=== PATIENT | male | born 1960 | race Caucasian/White ===

== ENCOUNTER → 2019-05-28 | Day surgery (SDC) | payer MEDICAID ==
[~2019-05-28] VITALS: Ht 182.9 cm; Wt 104.3 kg
[~2019-05-28] MED LIST: NIFE30TA76 PO
== END | disposition home or self-care (01) ==
LOC: SUR 10:08 → EDUNIT# 12:30
PROVIDERS: ATTEND Orthopaedic Surgery
DX: Z01.818 Encounter for other preprocedural examination (principal); M17.11 Unilateral primary osteoarthritis, right knee; M17.31 Unilateral post-traumatic osteoarthritis, right knee; S83.262D Peripheral tear of lateral meniscus, current injury, left knee, subsequent encounter; X58.XXXD Exposure to other specified factors, subsequent encounter
CPT/HCPCS: 73560

== ENCOUNTER → 2019-09-18 | Outpatient (CLI) | payer MEDICAID ==
[~2019-09-18] MED LIST changes: +NIFE1TAB31 PO; -NIFE30TA76 PO
== END | disposition home or self-care (01) ==
LOC: Rad HDHVI 11:09
PROVIDERS: ATTEND Internal Medicine
DX: I08.8 Other rheumatic multiple valve diseases (principal); I11.9 Hypertensive heart disease without heart failure
CPT/HCPCS: 93306

== ENCOUNTER → 2019-09-24 | Outpatient (CLI) | payer MEDICAID ==
[~2019-09-24] VITALS: Ht 182.9 cm; Wt 104.3 kg
[~2019-09-24] MED LIST changes: +ADENOSINE 88 MG in GIVE UN-DILUTED 0 ML IV ONE; +ADENOSINE 90 MG/30 ML INJ IV ONE
== END | disposition home or self-care (01) ==
LOC: Rad HDHVI 13:21
PROVIDERS: ATTEND Internal Medicine
DX: I10 Essential (primary) hypertension (principal); E11.9 Type 2 diabetes mellitus without complications; M25.561 Pain in right knee
CPT/HCPCS: 78452; 93005; 96374; 96375; A9500; J0153

== ENCOUNTER 2020-05-13 09:35 | Emergency (ER) | payer MEDICAID ==
[~2020-05-13] VITALS: Ht 182.9 cm; Wt 99.8 kg
[~2020-05-13 09:35] MED LIST changes: -ADENOSINE 88 MG in GIVE UN-DILUTED 0 ML IV ONE; -ADENOSINE 90 MG/30 ML INJ IV ONE
[2020-05-13 10:00] VITALS: BP 109/77
[2020-05-13] MEDS ORDERED: LIDOCAINE 1% HCL (LOCAL ANESTH.) INJ 20ML MDV IJ ONE (11:15)
== END 2020-05-13 12:04 | disposition home or self-care (01) ==
LOC: EDBD 09:35 → ER 09:35
DX: S01.112A Laceration without foreign body of left eyelid and periocular area, initial encounter (principal); E11.9 Type 2 diabetes mellitus without complications; I10 Essential (primary) hypertension; F17.210 Nicotine dependence, cigarettes, uncomplicated; F10.20 Alcohol dependence, uncomplicated; Z79.899 Other long term (current) drug therapy; Y90.9 Presence of alcohol in blood, level not specified; Y08.89XA Assault by other specified means, initial encounter; Y93.01 Activity, walking, marching and hiking; Y92.488 Other paved roadways as the place of occurrence of the external cause; Y99.8 Other external cause status
CPT/HCPCS: 12013; 70450; 70486; 99285; J2001

== ENCOUNTER 2020-05-13 14:58 | Emergency (ER) | payer MEDICAID ==
[~2020-05-13] VITALS: Ht 185.4 cm; Wt 77.1 kg
[2020-05-13] MEDS ORDERED: SODIUM CHLORIDE 0.9% 1,000 ML IV ONE (15:45)
[2020-05-13 16:18] VITALS: BP 101/55
[2020-05-13 16:55] LABS: Basophils # (auto) 0 10 ^3/uL (0-0.2); Eosinophils # (auto) 0 10 ^3/uL (0-0.8); Hemoglobin 12.3 g/dL (13.5-17.5); Lymphocytes % (auto) 6.7 % (10.0-50.0); Neutrophils # (auto) 11.8 10 ^3/uL (1.6-8.6); Red Cell Distribution Width 15.4 % (11.8-14.3); White Blood Cell 14.5 10^3/uL (4.4-10.8)
[2020-05-13 16:57] LABS: Basophils % (auto) 0.3 % (0.0-2.0); Hematocrit 35.8 % (41.0-53.0); Mean Corpuscular Hemoglobin 34.8 pg (28.0-32.0); Mean Corpuscular Hgb Conc. 34.4 g/dL (32.0-36.0); Mean Corpuscular Volume 101.2 fL (80.0-100.0); Monocytes # (auto) 1.7 10 ^3/uL (0-1.3); Monocytes % (auto) 11.6 % (0.0-12.0); Neutrophils % (auto) 81.4 % (37.0-80.0); Platelet Count (auto) 126 10^3/uL (140-450); Red Blood Cells 3.54 10^6/uL (4.5-5.90)
[2020-05-13 17:15] LABS: Albumin 2.8 g/dL (3.4-5.0); Anion Gap 16 (5-15); Blood Alcohol < 3.0 mg/dL (0-5); Blood Urea Nitrogen 39 mg/dL (7-18); Calcium 9.8 mg/dL (8.5-10.1); Carbon Dioxide 22 mmol/L (21-32); Chloride 97 mmol/L (98-107); Glucose 153 mg/dL (74-106); Potassium 3.6 mmol/L (3.5-5.1); Sodium 135 mmol/L (136-145)
[2020-05-13 17:18] LABS: Alanine Aminotransferase 122 U/L (16-61); Alkaline Phosphatase 168 U/L (45-117); Aspartate Aminotransferase 437 U/L (15-37); BUN/Creatinine Ratio 18.5; Bilirubin, Total 13.2 mg/dL (0.2-1.0); GFR African American 42 mL/min; GFR Non-African American 35 mL/min; Total Protein 5.6 g/dL (6.4-8.2)
== END 2020-05-13 19:43 | disposition left against medical advice (07) ==
LOC: EDUNIT# 14:58 → EDBD 14:58 → ER 14:58
DX: R53.1 Weakness (principal); E11.9 Type 2 diabetes mellitus without complications; I10 Essential (primary) hypertension; F17.210 Nicotine dependence, cigarettes, uncomplicated
CPT/HCPCS: 36415; 80053; 80320; 85025; 93005; 96360; 96361; 99284; J7030

== ENCOUNTER 2020-10-05 02:58 | Emergency (ER) | payer MEDICAID ==
[~2020-10-05] VITALS: Ht 180.3 cm; Wt 81.6 kg
[2020-10-05 07:33] VITALS: BP 120/63
== END 2020-10-05 08:23 | disposition home or self-care (01) ==
LOC: ER 03:01
DX: S91.332A Puncture wound without foreign body, left foot, initial encounter (principal); X58.XXXA Exposure to other specified factors, initial encounter; Y93.89 Activity, other specified; Y92.89 Other specified places as the place of occurrence of the external cause; Y99.8 Other external cause status
CPT/HCPCS: 73630

== ENCOUNTER 2020-11-23 12:04 | Inpatient (IN) | payer MEDICAID ==
[~2020-11-23] VITALS: Ht 180.3 cm; Wt 82.8 kg
[2020-11-23 13:29] LABS: Urine Bacteria NONE SEEN /hpf (None Seen); Urine Blood 1+ /uL (Negative); Urine Mucus FEW (None Seen); Urine Specific Gravity 1.037 (1.001-1.035); Urine WBC 3 /hpf (0 - 3)
[2020-11-23 14:26] LABS: Basophils # (auto) 0 10 ^3/uL (0-0.2); Basophils % (auto) 0.2 % (0.0-2.0); Eosinophils # (auto) 0 10 ^3/uL (0-0.8); Eosinophils % (auto) 0.2 % (0.0-7.0); Hematocrit 36.6 % (41.0-53.0); Hemoglobin 12.7 g/dL (13.5-17.5); Lymphocytes # (auto) 0.8 10 ^3/uL (0.4-5.4); Lymphocytes % (auto) 7.9 % (10.0-50.0); Mean Corpuscular Hemoglobin 35.7 pg (28.0-32.0); Mean Corpuscular Hgb Conc. 34.8 g/dL (32.0-36.0); Mean Corpuscular Volume 102.5 fL (80.0-100.0); Monocytes # (auto) 0.5 10 ^3/uL (0-1.3); Monocytes % (auto) 4.8 % (0.0-12.0); Neutrophils # (auto) 8.8 10 ^3/uL (1.6-8.6); Neutrophils % (auto) 86.9 % (37.0-80.0); Nucleated Red Blood Cells % 0.1 %; Platelet Count (auto) 146 10^3/uL (140-450); Red Blood Cells 3.57 10^6/uL (4.5-5.90); Red Cell Distribution Width 14.8 % (11.8-14.3); White Blood Cell 10.2 10^3/uL (4.4-10.8)
[2020-11-23 14:27] LABS: Albumin 2.6 g/dL (3.4-5.0); BUN/Creatinine Ratio 11.9; Calcium 8.6 mg/dL (8.5-10.1); Potassium 4.3 mmol/L (3.5-5.1)
[2020-11-23] MEDS ORDERED: ONDANSETRON HCL 4 MG/2 ML VIAL IV ONE (14:30)
[2020-11-23 14:35] LABS: Total Protein 6.5 g/dL (6.4-8.2)
[2020-11-23] MEDS ORDERED: MORPHINE SULF INJ 2 MG/ML SYRINGE 1ML IV PRN ×2 (15:00)
[2020-11-23] MEDS ORDERED: NITROGLYCERIN 0.4 MG SL TAB SL PRN (15:00)
[2020-11-23] MEDS ORDERED: ACETAMINOPHEN 325 MG TAB PO PRN (15:00)
[2020-11-23] MEDS: ONDANSETRON HCL 4 MG/2 ML VIAL IV PRN (18:38)
[2020-11-23] MEDS: HYDROcodone-ACET 5/325MG TAB PO PRN (18:41)
[2020-11-23 22:00] VITALS: BP 142/79
[2020-11-24 05:00] VITALS: BP 119/68
[2020-11-24 07:32] LABS: INR 1.77 (0.9-1.15)
[2020-11-24 08:37] VITALS: BP 136/71
[2020-11-24] MEDS: ONDANSETRON HCL 4 MG/2 ML VIAL IV PRN (09:20)
[2020-11-24] MEDS: HYDROcodone-ACET 5/325MG TAB PO PRN (09:20)
[2020-11-24] MEDS: levoFLOXacin 500MG 100 ML IV SCH (09:20)
[2020-11-24] MEDS ORDERED: DEXTROSE (50%) 50ML SYRG IV PRN (09:30)
[2020-11-24] MEDS ORDERED: PROMETHAZINE HCL 25 MG/ML 1ML IV PRN (11:00)
[2020-11-24] MEDS: SUCRALFATE 1 GM/10 ML ORAL SUSP PO SCH ×4 (11:30→22:11)
[2020-11-24] MEDS: PANTOPRAZOLE 40 MG TAB PO SCH ×2 (11:48→22:11)
[2020-11-24 11:52] LABS: Albumin 2.2 g/dL (3.4-5.0); Calcium 8.4 mg/dL (8.5-10.1); Potassium 4.3 mmol/L (3.5-5.1)
[2020-11-24 11:55] LABS: BUN/Creatinine Ratio 23.8; Total Protein 5.6 g/dL (6.4-8.2)
[2020-11-24] MEDS: ACCU-CHEK COMFORT CURVE STRIP VI SCH ×3 (12:04→22:11)
[2020-11-24] MEDS: InsuLIN REG 1unit/0.01ml Soln (100units/ml) SC SCH ×3 (12:33→22:16)
[2020-11-24 12:36] VITALS: BP 142/69
[2020-11-24 17:00] VITALS: BP 143/70
[2020-11-24 22:00] VITALS: BP 140/65
[2020-11-25 05:00] VITALS: BP 114/60
[2020-11-25] MEDS: ACCU-CHEK COMFORT CURVE STRIP VI SCH ×4 (06:23→22:21)
[2020-11-25] MEDS: HYDROcodone-ACET 5/325MG TAB PO PRN (06:23)
[2020-11-25] MEDS: InsuLIN REG 1unit/0.01ml Soln (100units/ml) SC SCH ×4 (06:23→22:24)
[2020-11-25 06:39] LABS: Eosinophils # (auto) 0.5 10 ^3/uL (0-0.8); Hemoglobin 9.5 g/dL (13.5-17.5); Monocytes # (auto) 1.1 10 ^3/uL (0-1.3)
[2020-11-25 06:42] LABS: Basophils # (auto) 0 10 ^3/uL (0-0.2); Basophils % (auto) 0.6 % (0.0-2.0); Eosinophils % (auto) 5.4 % (0.0-7.0); Hematocrit 25.8 % (41.0-53.0); Lymphocytes % (auto) 23.9 % (10.0-50.0); Mean Corpuscular Hemoglobin 37.3 pg (28.0-32.0); Mean Corpuscular Hgb Conc. 36.7 g/dL (32.0-36.0); Mean Corpuscular Volume 101.5 fL (80.0-100.0); Monocytes % (auto) 12.7 % (0.0-12.0); Neutrophils # (auto) 4.9 10 ^3/uL (1.6-8.6); Neutrophils % (auto) 57.4 % (37.0-80.0); Nucleated Red Blood Cells % 0.2 %; Platelet Count (auto) 100 10^3/uL (140-450); Red Blood Cells 2.54 10^6/uL (4.5-5.90); White Blood Cell 8.5 10^3/uL (4.4-10.8)
[2020-11-25 06:58] LABS: Calcium 7.8 mg/dL (8.5-10.1); Magnesium 1.9 mg/dL (1.6-2.6); Potassium 3.9 mmol/L (3.5-5.1)
[2020-11-25] MEDS: SUCRALFATE 1 GM/10 ML ORAL SUSP PO SCH ×4 (07:01→21:43)
[2020-11-25 07:03] LABS: BUN/Creatinine Ratio 26.1; Bilirubin, Total 5.3 mg/dL (0.2-1.0); Total Protein 4.9 g/dL (6.4-8.2)
[2020-11-25 08:43] VITALS: BP 130/69
[2020-11-25] MEDS: levoFLOXacin 500MG 100 ML IV SCH (10:37)
[2020-11-25] MEDS: PANTOPRAZOLE 40 MG TAB PO SCH ×2 (10:38→21:42)
[2020-11-25 13:00] VITALS: BP 140/68
[2020-11-25 17:00] VITALS: BP 127/65
[2020-11-25 21:24] VITALS: BP 109/54
[2020-11-26] MEDS: HYDROcodone-ACET 5/325MG TAB PO PRN (02:33)
[2020-11-26 04:39] VITALS: BP 127/61
[2020-11-26] MEDS: ACCU-CHEK COMFORT CURVE STRIP VI SCH ×3 (06:57→16:22)
[2020-11-26] MEDS: SUCRALFATE 1 GM/10 ML ORAL SUSP PO SCH ×3 (06:57→16:22)
[2020-11-26] MEDS: InsuLIN REG 1unit/0.01ml Soln (100units/ml) SC SCH ×3 (07:02→16:30)
[2020-11-26 09:00] VITALS: BP 101/55
[2020-11-26] MEDS: PANTOPRAZOLE 40 MG TAB PO SCH (09:49)
[2020-11-26] MEDS: levoFLOXacin 500MG 100 ML IV SCH (09:49)
[2020-11-26 12:44] VITALS: BP 122/55
[2020-11-26 16:41] VITALS: BP 113/69
[2020-11-26 18:37] VITALS: BP 122/55
== END 2020-11-26 19:45 | disposition home or self-care (01) | DRG 139 ==
LOC: ER 12:04 → TELE 14:59 → TELE-EAST 18:31
PROVIDERS: ADMIT Internal Medicine; ATTEND Internal Medicine
DX: J18.9 Pneumonia, unspecified organism (principal); D68.9 Coagulation defect, unspecified; J90 Pleural effusion, not elsewhere classified; K31.84 Gastroparesis; E11.65 Type 2 diabetes mellitus with hyperglycemia; K70.30 Alcoholic cirrhosis of liver without ascites; J98.11 Atelectasis; F10.10 Alcohol abuse, uncomplicated; Z20.822 Contact with and (suspected) exposure to COVID-19; I10 Essential (primary) hypertension
CPT/HCPCS: 36415; 71046; 71250; 80053; 80320; 81001; 82140; 82962; 83036; 83735; 83880; 84484; 85025; 85610; 87081; 87426; 96374; 96375; G0378; J1815; J1956; J2405

== ENCOUNTER 2020-12-28 14:41 | Inpatient (IN) | payer MEDICAID ==
[~2020-12-28] VITALS: Ht 180.3 cm; Wt 92.9 kg
[2020-12-28] MEDS ORDERED: SODIUM CHLORIDE 0.9% 1,000 ML IV ONE (15:00)
[2020-12-28] MEDS ORDERED: PIPERACILLIN-TAZOB 3.375GM 100 ML IV ONE (15:00)
[2020-12-28 17:00] LABS: Hemoglobin 11.6 g/dL (13.5-17.5); Lymphocytes # (auto) 0.8 10 ^3/uL (0.4-5.4); Monocytes # (auto) 0.7 10 ^3/uL (0-1.3); Monocytes % (auto) 8.6 % (0.0-12.0); Nucleated Red Blood Cells % 0.1 %
[2020-12-28 17:02] LABS: Basophils # (auto) 0 10 ^3/uL (0-0.2); Basophils % (auto) 0.6 % (0.0-2.0); Eosinophils # (auto) 0.1 10 ^3/uL (0-0.8); Eosinophils % (auto) 1.5 % (0.0-7.0); Hematocrit 32.4 % (41.0-53.0); Lymphocytes % (auto) 9.7 % (10.0-50.0); Mean Corpuscular Hemoglobin 37.4 pg (28.0-32.0); Mean Corpuscular Hgb Conc. 35.8 g/dL (32.0-36.0); Mean Corpuscular Volume 104.5 fL (80.0-100.0); Neutrophils # (auto) 6.8 10 ^3/uL (1.6-8.6); Neutrophils % (auto) 79.6 % (37.0-80.0); Platelet Count (auto) 101 10^3/uL (140-450); Red Cell Distribution Width 16.3 % (11.8-14.3); White Blood Cell 8.5 10^3/uL (4.4-10.8)
[2020-12-28 17:20] LABS: Albumin 1.9 g/dL (3.4-5.0); BUN/Creatinine Ratio 9.2; Calcium 7.7 mg/dL (8.5-10.1); Potassium 3.5 mmol/L (3.5-5.1)
[2020-12-28 17:22] LABS: Lactic Acid w/Reflex 4.7 mmol/L (0.4-2.0)
[2020-12-28 17:25] LABS: INR 1.94 (0.9-1.15); Partial Thromboplastin Time 43.1 sec (23.0-31.2); Total Protein 6.1 g/dL (6.4-8.2)
[2020-12-28 18:24] LABS: Urine Bacteria NONE SEEN /hpf (None Seen); Urine Blood Negative /uL (Negative); Urine Specific Gravity 1.039 (1.001-1.035); Urine WBC 1 /hpf (0 - 3)
[2020-12-28] MEDS ORDERED: NITROGLYCERIN 0.4 MG SL TAB SL PRN (19:30)
[2020-12-28] MEDS ORDERED: hydrALAZINE HCL 20 MG/ML VL IV PRN (19:30)
[2020-12-28] MEDS ORDERED: ONDANSETRON HCL 4 MG/2 ML VIAL IV PRN (19:30)
[2020-12-28] MEDS: SODIUM CHLORIDE 0.9% 1,000 ML IV SCH (19:30)
[2020-12-28] MEDS ORDERED: MORPHINE SULF INJ 2 MG/ML SYRINGE 1ML IV PRN (19:30)
[2020-12-28] MEDS ORDERED: ACETAMINOPHEN 325 MG TAB PO PRN (19:30)
[2020-12-28] MEDS ORDERED: VANCOMYCIN PER PHARMACY 0 MG IV SCH (19:30)
[2020-12-28] MEDS: VANCOMYCIN 1GM/250ML 250 ML IV SCH (20:00)
[2020-12-28 23:40] VITALS: BP 131/70
[2020-12-29 05:00] VITALS: BP 123/61
[2020-12-29] MEDS: VANCOMYCIN 1GM/250ML 250 ML IV SCH ×2 (05:03→16:49)
[2020-12-29] MEDS: SODIUM CHLORIDE 0.9% 1,000 ML IV SCH (05:03)
[2020-12-29] MEDS: PIPERACILLIN-TAZOB 3.375GM 100 ML IV SCH ×4 (06:06→18:50)
[2020-12-29 06:12] LABS: Basophils # (auto) 0.1 10 ^3/uL (0-0.2); Monocytes # (auto) 0.7 10 ^3/uL (0-1.3)
[2020-12-29 06:15] LABS: Basophils % (auto) 0.7 % (0.0-2.0); Eosinophils # (auto) 0.2 10 ^3/uL (0-0.8); Eosinophils % (auto) 3.4 % (0.0-7.0); Hematocrit 31.1 % (41.0-53.0); Hemoglobin 11.1 g/dL (13.5-17.5); Lymphocytes % (auto) 14.2 % (10.0-50.0); Mean Corpuscular Hemoglobin 37.2 pg (28.0-32.0); Mean Corpuscular Hgb Conc. 35.8 g/dL (32.0-36.0); Monocytes % (auto) 9.7 % (0.0-12.0); Neutrophils # (auto) 5.2 10 ^3/uL (1.6-8.6); Nucleated Red Blood Cells % 0.1 %; Platelet Count (auto) 88 10^3/uL (140-450); Red Blood Cells 2.99 10^6/uL (4.5-5.90); Red Cell Distribution Width 16.9 % (11.8-14.3); White Blood Cell 7.3 10^3/uL (4.4-10.8)
[2020-12-29 06:29] LABS: Lactic Acid w/Reflex 2.7 mmol/L (0.4-2.0)
[2020-12-29 06:35] LABS: Potassium 3.4 mmol/L (3.5-5.1)
[2020-12-29 06:48] LABS: BUN/Creatinine Ratio 15.4; Calcium 7.4 mg/dL (8.5-10.1)
[2020-12-29 08:59] VITALS: BP 124/76
[2020-12-29] MEDS: HYDROcodone-ACET 5/325MG TAB PO PRN ×3 (09:53→16:51)
[2020-12-29] MEDS: ENOXAPARIN SOD 40 MG/0.4 ML SYRINGE SC SCH (09:55)
[2020-12-29 13:00] VITALS: BP 128/62
[2020-12-29] MEDS ORDERED: DEXTROSE (50%) 50ML SYRG IV PRN (13:30)
[2020-12-29] MEDS ORDERED: POTASSIUM CHL 20MEQ/100ML 100 ML IV ONE (13:30)
[2020-12-29] MEDS: ACCU-CHEK COMFORT CURVE STRIP VI SCH ×2 (16:49→20:57)
[2020-12-29 17:00] VITALS: BP 126/78
[2020-12-29] MEDS: InsuLIN REG 1unit/0.01ml Soln (100units/ml) SC SCH ×2 (17:04→20:53)
[2020-12-29 22:00] VITALS: BP 121/66
[2020-12-30] MEDS: ACCU-CHEK COMFORT CURVE STRIP VI SCH ×6 (00:27→20:00)
[2020-12-30] MEDS: PIPERACILLIN-TAZOB 3.375GM 100 ML IV SCH ×4 (00:27→18:20)
[2020-12-30] MEDS: HYDROcodone-ACET 5/325MG TAB PO PRN ×3 (00:28→22:24)
[2020-12-30] MEDS: VANCOMYCIN 1GM/250ML 250 ML IV SCH ×4 (02:18→21:06)
[2020-12-30] MEDS: InsuLIN REG 1unit/0.01ml Soln (100units/ml) SC SCH ×6 (04:00→20:18)
[2020-12-30 05:00] VITALS: BP 116/60
[2020-12-30 06:23] LABS: Hemoglobin 12.3 g/dL (13.5-17.5); Mean Corpuscular Hemoglobin 37.3 pg (28.0-32.0); Mean Corpuscular Volume 103.5 fL (80.0-100.0)
[2020-12-30 06:30] LABS: Basophils # (auto) 0 10 ^3/uL (0-0.2); Eosinophils # (auto) 0.2 10 ^3/uL (0-0.8); Eosinophils % (auto) 3.4 % (0.0-7.0); Lymphocytes # (auto) 0.8 10 ^3/uL (0.4-5.4); Lymphocytes % (auto) 10.9 % (10.0-50.0); Monocytes # (auto) 0.8 10 ^3/uL (0-1.3); Monocytes % (auto) 11.9 % (0.0-12.0); Neutrophils # (auto) 5.2 10 ^3/uL (1.6-8.6); Neutrophils % (auto) 73.8 % (37.0-80.0); Nucleated Red Blood Cells % 0.4 %; Platelet Count (auto) 104 10^3/uL (140-450); Red Blood Cells 3.29 10^6/uL (4.5-5.90); Red Cell Distribution Width 16.8 % (11.8-14.3); White Blood Cell 7.1 10^3/uL (4.4-10.8)
[2020-12-30 06:45] LABS: Potassium 3.4 mmol/L (3.5-5.1)
[2020-12-30 06:53] LABS: BUN/Creatinine Ratio 14.9; Calcium 7.9 mg/dL (8.5-10.1)
[2020-12-30] MEDS ORDERED: GADOTERATE MEG 10 MMOL/20ml INJ (0.5MMOL/ml) IV ONE (08:59)
[2020-12-30] MEDS: ENOXAPARIN SOD 40 MG/0.4 ML SYRINGE SC SCH (10:00)
[2020-12-30] MEDS ORDERED: INSULIN LANTUS (GLARGINE) 1 /0.01ml (100units/ml) SC SCH (10:00)
[2020-12-30] MEDS: POTASSIUM CHL 20 Meq TABLET PO SCH ×3 (12:51→22:18)
[2020-12-30 13:00] VITALS: BP 118/63
[2020-12-30 13:52] LABS: Albumin 1.5 g/dL (3.4-5.0); Calcium 7.2 mg/dL (8.5-10.1); Potassium 3.7 mmol/L (3.5-5.1)
[2020-12-30 13:56] LABS: BUN/Creatinine Ratio 16.3; Bilirubin, Total 5.6 mg/dL (0.2-1.0)
[2020-12-30 15:00] VITALS: BP 135/69
[2020-12-30 22:00] VITALS: BP 114/61
[2020-12-30] MEDS: INSULIN LANTUS (GLARGINE) 1 /0.01ml (100units/ml) SC SCH (22:19)
[2020-12-31] MEDS: PIPERACILLIN-TAZOB 3.375GM 100 ML IV SCH ×4 (00:21→17:25)
[2020-12-31] MEDS: ACCU-CHEK COMFORT CURVE STRIP VI SCH ×6 (00:21→20:52)
[2020-12-31] MEDS: InsuLIN REG 1unit/0.01ml Soln (100units/ml) SC SCH ×6 (00:23→20:52)
[2020-12-31] MEDS: VANCOMYCIN 1GM/250ML 250 ML IV SCH ×3 (04:55→20:53)
[2020-12-31 05:00] VITALS: BP 118/67
[2020-12-31 06:13] LABS: Basophils # (auto) 0.1 10 ^3/uL (0-0.2); Lymphocytes # (auto) 1.4 10 ^3/uL (0.4-5.4); Monocytes # (auto) 0.8 10 ^3/uL (0-1.3); Nucleated Red Blood Cells % 0.1 %
[2020-12-31 06:17] LABS: Basophils % (auto) 1.1 % (0.0-2.0); Eosinophils # (auto) 0.4 10 ^3/uL (0-0.8); Eosinophils % (auto) 6.3 % (0.0-7.0); Hematocrit 31.2 % (41.0-53.0); Hemoglobin 11.5 g/dL (13.5-17.5); Lymphocytes % (auto) 20.2 % (10.0-50.0); Mean Corpuscular Hemoglobin 38.3 pg (28.0-32.0); Mean Corpuscular Volume 103.6 fL (80.0-100.0); Neutrophils # (auto) 4.3 10 ^3/uL (1.6-8.6); Neutrophils % (auto) 61.4 % (37.0-80.0); Platelet Count (auto) 101 10^3/uL (140-450); Red Blood Cells 3.01 10^6/uL (4.5-5.90); Red Cell Distribution Width 16.5 % (11.8-14.3)
[2020-12-31 06:19] LABS: Mean Corpuscular Hgb Conc. 36.1 g/dL (32.0-36.0)
[2020-12-31 06:37] LABS: BUN/Creatinine Ratio 22.5; Calcium 7.6 mg/dL (8.5-10.1); Potassium 4.1 mmol/L (3.5-5.1)
[2020-12-31] MEDS: ENOXAPARIN SOD 40 MG/0.4 ML SYRINGE SC SCH (07:51)
[2020-12-31] MEDS: HYDROcodone-ACET 5/325MG TAB PO PRN (08:33)
[2020-12-31 09:00] VITALS: BP 111/64
[2020-12-31] MEDS: INSULIN LANTUS (GLARGINE) 1 /0.01ml (100units/ml) SC SCH ×2 (09:17→22:16)
[2020-12-31] MEDS ORDERED: ceFAZolin 1GM VL ONE (10:49)
[2020-12-31] MEDS ORDERED: ROCURONIUM 10MG/ML 10ML VIAL IV ONE (10:58)
[2020-12-31] MEDS ORDERED: MIDAZOLAM HCL 1MG/1ML-2 ML VIAL ONE (11:11)
[2020-12-31] MEDS ORDERED: fentaNYL CITRATE 100 MCG/2 ML VL ONE (11:11)
[2020-12-31] MEDS ORDERED: ONDANSETRON HCL 4 MG/2 ML VIAL ONE (11:39)
[2020-12-31] MEDS ORDERED: PROPOFOL 10 MG/ML 20 ML IV ONE (11:39)
[2020-12-31] MEDS ORDERED: HYDROmorphone HCL 2 MG/ML VL ONE (12:10)
[2020-12-31] MEDS: HYDROmorphone HCL 2 MG/ML VL IV PRN ×3 (12:12→12:32)
[2020-12-31] MEDS ORDERED: SUCCINYLCHOLINE CHLORIDE 20 MG/ML 10ML VIAL IV ONE (12:25)
[2020-12-31] MEDS ORDERED: HYDROmorphone HCL 2 MG/ML VL IV PRN (12:45)
[2020-12-31 13:40] LABS: INR 1.93 (0.9-1.15); Partial Thromboplastin Time 50.1 sec (23.0-31.2)
[2020-12-31 16:55] VITALS: BP 104/69
[2020-12-31 22:00] VITALS: BP 120/66
[2021-01-01] MEDS: PIPERACILLIN-TAZOB 3.375GM 100 ML IV SCH ×4 (00:17→18:18)
[2021-01-01] MEDS: ACCU-CHEK COMFORT CURVE STRIP VI SCH ×6 (00:17→21:20)
[2021-01-01] MEDS: InsuLIN REG 1unit/0.01ml Soln (100units/ml) SC SCH ×6 (00:20→21:21)
[2021-01-01] MEDS: MORPHINE SULF INJ 2 MG/ML SYRINGE 1ML IV PRN ×4 (03:18→21:22)
[2021-01-01 05:00] VITALS: BP 110/64
[2021-01-01] MEDS: VANCOMYCIN 1GM/250ML 250 ML IV SCH ×3 (05:03→21:21)
[2021-01-01 06:43] LABS: Basophils # (auto) 0.1 10 ^3/uL (0-0.2); Eosinophils # (auto) 0.5 10 ^3/uL (0-0.8); Hemoglobin 10.8 g/dL (13.5-17.5); Lymphocytes # (auto) 1.3 10 ^3/uL (0.4-5.4)
[2021-01-01 06:45] LABS: Basophils % (auto) 1.2 % (0.0-2.0); Eosinophils % (auto) 7.9 % (0.0-7.0); Hematocrit 29.9 % (41.0-53.0); Mean Corpuscular Hemoglobin 37.4 pg (28.0-32.0); Mean Corpuscular Hgb Conc. 36.3 g/dL (32.0-36.0); Monocytes # (auto) 0.8 10 ^3/uL (0-1.3); Monocytes % (auto) 12.1 % (0.0-12.0); Neutrophils % (auto) 59.8 % (37.0-80.0); Platelet Count (auto) 93 10^3/uL (140-450); White Blood Cell 6.7 10^3/uL (4.4-10.8)
[2021-01-01 07:04] LABS: Potassium 4.2 mmol/L (3.5-5.1)
[2021-01-01 07:07] LABS: Calcium 7.7 mg/dL (8.5-10.1)
[2021-01-01 09:00] VITALS: BP 110/63
[2021-01-01] MEDS: ENOXAPARIN SOD 40 MG/0.4 ML SYRINGE SC SCH (10:15)
[2021-01-01] MEDS: INSULIN LANTUS (GLARGINE) 1 /0.01ml (100units/ml) SC SCH ×2 (10:16→21:22)
[2021-01-01 13:00] VITALS: BP 107/55
[2021-01-01 17:00] VITALS: BP 110/64
[2021-01-01] MEDS ORDERED: ACET250T3 PO (17:17)
[2021-01-01] MEDS ORDERED: INSLANTI SC (17:17)
[2021-01-01] MEDS ORDERED: METH500T22 PO (17:17)
[2021-01-01] MEDS ORDERED: GABA300C10 PO (17:17)
[2021-01-01] MEDS ORDERED: INSU100I4 SC (17:17)
[2021-01-01] MEDS ORDERED: DOCU100T15 PO (17:17)
[2021-01-01] MEDS ORDERED: OXY5T GT (17:17)
[2021-01-01 23:56] VITALS: BP 111/54
[2021-01-02] MEDS: InsuLIN REG 1unit/0.01ml Soln (100units/ml) SC SCH ×6 (00:52→20:50)
[2021-01-02] MEDS: PIPERACILLIN-TAZOB 3.375GM 100 ML IV SCH ×4 (00:59→17:00)
[2021-01-02] MEDS: ACCU-CHEK COMFORT CURVE STRIP VI SCH ×6 (01:00→20:49)
[2021-01-02] MEDS: HYDROcodone-ACET 5/325MG TAB PO PRN (01:01)
[2021-01-02] MEDS: VANCOMYCIN 1GM/250ML 250 ML IV SCH ×3 (05:00→20:49)
[2021-01-02] MEDS: MORPHINE SULF INJ 2 MG/ML SYRINGE 1ML IV PRN ×4 (05:01→22:45)
[2021-01-02 05:15] VITALS: BP 119/64
[2021-01-02 05:34] LABS: Basophils # (auto) 0 10 ^3/uL (0-0.2); Eosinophils # (auto) 0.3 10 ^3/uL (0-0.8); Monocytes # (auto) 0.6 10 ^3/uL (0-1.3)
[2021-01-02 05:35] LABS: Basophils % (auto) 1.1 % (0.0-2.0); Hematocrit 26.2 % (41.0-53.0); Hemoglobin 9.3 g/dL (13.5-17.5); Lymphocytes # (auto) 1.3 10 ^3/uL (0.4-5.4); Lymphocytes % (auto) 28.4 % (10.0-50.0); Mean Corpuscular Hemoglobin 36.9 pg (28.0-32.0); Mean Corpuscular Hgb Conc. 35.7 g/dL (32.0-36.0); Mean Corpuscular Volume 103.6 fL (80.0-100.0); Neutrophils # (auto) 2.2 10 ^3/uL (1.6-8.6); Neutrophils % (auto) 49.5 % (37.0-80.0); Platelet Count (auto) 68 10^3/uL (140-450); Red Blood Cells 2.53 10^6/uL (4.5-5.90); White Blood Cell 4.4 10^3/uL (4.4-10.8)
[2021-01-02 06:04] LABS: Potassium 4.3 mmol/L (3.5-5.1)
[2021-01-02 06:19] LABS: BUN/Creatinine Ratio 17.4; Calcium 7.7 mg/dL (8.5-10.1)
[2021-01-02] MEDS: INSULIN LANTUS (GLARGINE) 1 /0.01ml (100units/ml) SC SCH ×2 (08:56→22:59)
[2021-01-02] MEDS: SPIRONOLACTONE 25 MG TAB PO SCH (08:57)
[2021-01-02] MEDS: ENOXAPARIN SOD 40 MG/0.4 ML SYRINGE SC SCH (08:57)
[2021-01-02 09:03] VITALS: BP 116/62
[2021-01-02 13:00] VITALS: BP 111/63
[2021-01-02 17:00] VITALS: BP 121/63
[2021-01-02 22:00] VITALS: BP 126/70
[2021-01-03] MEDS: PIPERACILLIN-TAZOB 3.375GM 100 ML IV SCH ×4 (00:39→15:00)
[2021-01-03] MEDS: ACCU-CHEK COMFORT CURVE STRIP VI SCH ×5 (00:39→16:00)
[2021-01-03] MEDS: InsuLIN REG 1unit/0.01ml Soln (100units/ml) SC SCH ×5 (00:57→16:00)
[2021-01-03] MEDS: VANCOMYCIN 1GM/250ML 250 ML IV SCH (04:55)
[2021-01-03 05:00] VITALS: BP 113/62
[2021-01-03] MEDS: HYDROcodone-ACET 5/325MG TAB PO PRN (06:22)
[2021-01-03] MEDS: MORPHINE SULF INJ 2 MG/ML SYRINGE 1ML IV PRN (08:40)
[2021-01-03] MEDS: INSULIN LANTUS (GLARGINE) 1 /0.01ml (100units/ml) SC SCH (08:41)
[2021-01-03] MEDS: SPIRONOLACTONE 25 MG TAB PO SCH (08:41)
[2021-01-03] MEDS: ENOXAPARIN SOD 40 MG/0.4 ML SYRINGE SC SCH (08:42)
[2021-01-03 09:00] VITALS: BP 115/62
[2021-01-03 13:00] VITALS: BP 121/58
[2021-01-03] MEDS ORDERED: VANCOMYCIN 1GM/250ML 250 ML IV SCH (14:00)
== END 2021-01-03 16:41 | DRG 364 ==
LOC: EDBD 14:41 → ER 14:41 → TELE 19:18 → TELE-CENTR 22:20
PROVIDERS: ADMIT Internal Medicine; ATTEND Internal Medicine
PROC: 0JDR0ZZ Extraction of Left Foot Subcutaneous Tissue and Fascia, Open Approach (ICD-10-PCS; principal; 2020-12-31 11:08)
DX: L02.416 Cutaneous abscess of left lower limb (principal); E43 Unspecified severe protein-calorie malnutrition; J90 Pleural effusion, not elsewhere classified; L03.116 Cellulitis of left lower limb; Z20.822 Contact with and (suspected) exposure to COVID-19; E11.65 Type 2 diabetes mellitus with hyperglycemia; E87.6 Hypokalemia; B96.89 Other specified bacterial agents as the cause of diseases classified elsewhere; I10 Essential (primary) hypertension; F17.210 Nicotine dependence, cigarettes, uncomplicated; E78.5 Hyperlipidemia, unspecified; K70.31 Alcoholic cirrhosis of liver with ascites; I87.8 Other specified disorders of veins; L30.9 Dermatitis, unspecified; K80.20 Calculus of gallbladder without cholecystitis without obstruction; I77.1 Stricture of artery; Z68.26 Body mass index [BMI] 26.0-26.9, adult; Z79.4 Long term (current) use of insulin; Z79.899 Other long term (current) drug therapy
CPT/HCPCS: 36415; 71045; 73700; 73719; 76700; 78226; 80048; 80053; 80202; 81001; 82565; 82962; 83605; 83880; 84484; 85025; 85049; 85610; 85730; 86850; 86900; 86901; 87040; 87070; 87075; 87077; 87081; 87186; 87205; 87426; 93926; 93970; 96365; 96366; 97110; 97530; G0378; J0330; J0690; J1815; J2250; J2405; J2543; J2704; J3480

== ENCOUNTER 2021-02-12 12:15 | Emergency (ER) | payer MEDICAID ==
[~2021-02-12] VITALS: Ht 182.9 cm; Wt 72.6 kg
[~2021-02-12 12:15] MED LIST changes: +ACET250T3 PO; +DOCU100T15 PO; +GABA300C10 PO; +INSLANTI SC; +INSU100I4 SC; +METH500T22 PO; -NIFE1TAB31 PO; +OXY5T GT
[2021-02-12 14:00] LABS: Eosinophils # (auto) 0 10 ^3/uL (0-0.8); Mean Corpuscular Volume 100.5 fL (80.0-100.0); Monocytes # (auto) 0.4 10 ^3/uL (0-1.3)
[2021-02-12 14:04] LABS: Basophils # (auto) 0 10 ^3/uL (0-0.2); Basophils % (auto) 0.8 % (0.0-2.0); Hematocrit 30.8 % (41.0-53.0); Hemoglobin 11.1 g/dL (13.5-17.5); Lymphocytes % (auto) 20.5 % (10.0-50.0); Mean Corpuscular Hemoglobin 36.2 pg (28.0-32.0); Mean Corpuscular Hgb Conc. 36.1 g/dL (32.0-36.0); Monocytes % (auto) 9.3 % (0.0-12.0); Neutrophils # (auto) 3.3 10 ^3/uL (1.6-8.6); Neutrophils % (auto) 69.4 % (37.0-80.0); Nucleated Red Blood Cells % 0.1 %; Red Blood Cells 3.07 10^6/uL (4.5-5.90); Red Cell Distribution Width 14.6 % (11.8-14.3); White Blood Cell 4.7 10^3/uL (4.4-10.8)
[2021-02-12 14:22] LABS: Potassium 4.9 mmol/L (3.5-5.1)
[2021-02-12 14:32] LABS: Albumin 2.8 g/dL (3.4-5.0); BUN/Creatinine Ratio 13.5; Bilirubin, Total 3.9 mg/dL (0.2-1.0); Calcium 10.3 mg/dL (8.5-10.1)
[2021-02-12 17:35] VITALS: BP 120/68
== END 2021-02-12 17:35 | disposition home or self-care (01) ==
LOC: ER 12:15
DX: E11.65 Type 2 diabetes mellitus with hyperglycemia (principal); I10 Essential (primary) hypertension; F17.210 Nicotine dependence, cigarettes, uncomplicated; Z79.4 Long term (current) use of insulin; Z79.899 Other long term (current) drug therapy
CPT/HCPCS: 36415; 80053; 82010; 85025

== ENCOUNTER → 2021-04-13 | Outpatient (CLI) | payer MEDICAID ==
[2021-04-13 11:37] LABS: Eosinophils # (auto) 0.3 10 ^3/uL (0-0.8); Lymphocytes # (auto) 1.2 10 ^3/uL (0.4-5.4); Monocytes # (auto) 0.4 10 ^3/uL (0-1.3); White Blood Cell 4.3 10^3/uL (4.4-10.8)
[2021-04-13 11:39] LABS: Basophils # (auto) 0.1 10 ^3/uL (0-0.2); Basophils % (auto) 1.4 % (0.0-2.0); Eosinophils % (auto) 6.5 % (0.0-7.0); Hemoglobin 10.7 g/dL (13.5-17.5); Lymphocytes % (auto) 27.8 % (10.0-50.0); Mean Corpuscular Hemoglobin 34.3 pg (28.0-32.0); Mean Corpuscular Hgb Conc. 34.5 g/dL (32.0-36.0); Mean Corpuscular Volume 99.5 fL (80.0-100.0); Monocytes % (auto) 9.7 % (0.0-12.0); Neutrophils # (auto) 2.3 10 ^3/uL (1.6-8.6); Neutrophils % (auto) 54.6 % (37.0-80.0); Nucleated Red Blood Cells % 0.2 %; Red Blood Cells 3.12 10^6/uL (4.5-5.90)
[2021-04-13 11:44] LABS: INR 1.48 (0.9-1.15)
[2021-04-13 11:55] LABS: Urine Bacteria NONE SEEN /hpf (None Seen); Urine Blood Negative /uL (Negative); Urine Specific Gravity 1.022 (1.001-1.035); Urine WBC 1 /hpf (0 - 3)
[2021-04-13 12:04] LABS: Albumin 2.3 g/dL (3.4-5.0); Calcium 8.9 mg/dL (8.5-10.1); Potassium 4.1 mmol/L (3.5-5.1)
[2021-04-13 12:08] LABS: Alcohol, Urine < 3.0 mg/dL (0-10); Amphetamine Screen, Urine POSITIVE (NEGATIVE); Barbiturate Scree,Urine NEGATIVE (NEGATIVE); Benzodiazephine Screen, Urine NEGATIVE (NEGATIVE); Cocaine Screen, Urine NEGATIVE (NEGATIVE)
[2021-04-13 12:09] LABS: BUN/Creatinine Ratio 13.5; Bilirubin, Total 2.7 mg/dL (0.2-1.0)
[2021-04-13 12:21] LABS: Cannabinoid Screen, Urine POSITIVE (NEGATIVE); Opiate Scree,Urine NEGATIVE (NEGATIVE); Phencyclidine Screen, Urine NEGATIVE (NEGATIVE)
== END | disposition home or self-care (01) ==
LOC: LAB 11:16
PROVIDERS: ATTEND Internal Medicine
DX: K76.4 Peliosis hepatis (principal); L03.116 Cellulitis of left lower limb; E11.9 Type 2 diabetes mellitus without complications; F15.10 Other stimulant abuse, uncomplicated; F12.90 Cannabis use, unspecified, uncomplicated
CPT/HCPCS: 36415; 80053; 80307; 81001; 85025; 85610

== ENCOUNTER → 2021-08-23 | Outpatient (CLI) | payer MEDICAID | END | disposition home or self-care (01) | LOC: Rad HDHVI 15:50 | PROVIDERS: ATTEND Internal Medicine | DX: I08.1 Rheumatic disorders of both mitral and tricuspid valves (principal) | CPT/HCPCS: 93306 ==

== ENCOUNTER → 2021-08-25 | Outpatient (CLI) | payer MEDICAID | END | disposition home or self-care (01) | LOC: Rad HDHVI 09:14 | PROVIDERS: ATTEND Internal Medicine | DX: I65.23 Occlusion and stenosis of bilateral carotid arteries (principal); I10 Essential (primary) hypertension | CPT/HCPCS: 93880 ==

== ENCOUNTER 2022-01-28 09:13 | Emergency (ER) | payer MEDICAID ==
[~2022-01-28] VITALS: Ht 182.9 cm; Wt 80.0 kg
[2022-01-28] MEDS ORDERED: HYDROcodone-ACET 10/325MG TAB PO ONE (09:30)
[2022-01-28] MEDS ORDERED: ONDANSETRON HCL 4 MG/2 ML VIAL IV ONE (10:45)
[2022-01-28] MEDS ORDERED: HYDROmorphone HCL 2 MG/ML VL/or syr IV ONE (10:45)
[2022-01-28] MEDS ORDERED: CLINDAMYCIN 600MG IV 50 ML IV ONE (11:30)
[2022-01-28 12:07] LABS: Hematocrit 28.4 % (41.0-53.0); Hemoglobin 9.8 g/dL (13.5-17.5); Mean Corpuscular Hemoglobin 33.6 pg (28.0-32.0); Mean Corpuscular Hgb Conc. 34.4 g/dL (32.0-36.0); Mean Corpuscular Volume 97.8 fL (80.0-100.0); Red Blood Cells 2.91 10^6/uL (4.5-5.90); White Blood Cell 5.7 10^3/uL (4.4-10.8)
[2022-01-28 12:25] LABS: Albumin 2.3 g/dL (3.4-5.0); BUN/Creatinine Ratio 26.2; Calcium 8.2 mg/dL (8.5-10.1); Potassium 4.6 mmol/L (3.5-5.1)
[2022-01-28 12:28] LABS: Bilirubin, Total 2.4 mg/dL (0.2-1.0); Total Protein 5.4 g/dL (6.4-8.2)
[2022-01-28 13:06] LABS: Basophils % (manual) 0 (0.0-2.0); Blast Cells 0; Metamyelocytes % 0; Promyelocytes % 0; Reactive Lymphocytes 0
[2022-01-28 14:34] VITALS: BP 136/58
[2022-01-28 16:06] LABS: Band Neutrophils % (manual) 4; Eosinophils % (manual) 23 (0-7); Lymphocytes % (manual) 14 (10.0-50.0); Monocytes % (manual) 3 (0-12); Myelocytes % 1
[2022-01-28] MEDS ORDERED: APIXABAN 2.5 MG TAB PO SCH (22:00)
== END 2022-01-28 15:11 | disposition home or self-care (01) ==
LOC: EDBD 09:13 → ER 09:19
DX: M79.604 Pain in right leg (principal); I10 Essential (primary) hypertension; E11.9 Type 2 diabetes mellitus without complications; E78.5 Hyperlipidemia, unspecified; Z96.651 Presence of right artificial knee joint; Z79.4 Long term (current) use of insulin; Z79.899 Other long term (current) drug therapy
CPT/HCPCS: 36415; 80053; 85007; 85027; 85652; 93971; 96365; 96375; 99284; J1170; J2405; J3490

== ENCOUNTER → 2024-01-03 | Outpatient (CLI) | payer MEDICAID ==
[~2024-01-03] MED LIST changes: +ACET250T20 PO; -ACET250T3 PO; +GABA-1250 PO; -GABA300C10 PO; +METH-1181 PO; -METH500T22 PO
[2024-01-03 16:20] LABS: Urine Bacteria None Seen /hpf (None Seen)
[2024-01-03 16:22] LABS: Basophils # (auto) 0.1 10 ^3/uL (0-0.2); Basophils % (auto) 1.4 % (0.0-2.0); Eosinophils # (auto) 0.9 10 ^3/uL (0-0.8); Eosinophils % (auto) 14.8 % (0.0-7.0); Hematocrit 41.2 % (41.0-53.0); Hemoglobin 14.2 g/dL (13.5-17.5); Lymphocytes # (auto) 1.7 10 ^3/uL (0.4-5.4); Lymphocytes % (auto) 27.5 % (10.0-50.0); Mean Corpuscular Hemoglobin 32.9 pg (28.0-32.0); Mean Corpuscular Hgb Conc. 34.6 g/dL (32.0-36.0); Mean Corpuscular Volume 95.2 fL (80.0-100.0); Monocytes # (auto) 0.6 10 ^3/uL (0-1.3); Monocytes % (auto) 9.3 % (0.0-12.0); Neutrophils # (auto) 2.9 10 ^3/uL (1.6-8.6); Nucleated Red Blood Cells % 0.1 %; Red Blood Cells 4.32 10^6/uL (4.5-5.90); Red Cell Distribution Width 15.3 % (11.8-14.3); White Blood Cell 6.2 10^3/uL (4.4-10.8)
[2024-01-03 16:33] LABS: Urine Blood Negative /uL (Negative); Urine Clarity Clear (Clear); Urine Color Yellow (Yellow); Urine Protein, UAD Negative (Negative); Urine Specific Gravity 1.041 (1.001-1.035); Urine Urobilinogen Normal (Negative); Urine WBC 1 /hpf (0 - 3); Urine pH 5.5 (5.0-9.0)
[2024-01-03 16:52] LABS: Alanine Aminotransferase 43 U/L (7-40); Alkaline Phosphatase 212 U/L (46-116); Anion Gap 6 (5-15); Aspartate Aminotransferase 49 U/L (13-40); BUN/Creatinine Ratio 7.3 (10.0-20.0); Blood Urea Nitrogen 7 mg/dL (9-23); Calcium 9.8 mg/dL (8.5-10.1); Carbon Dioxide 25 mmol/L (20-30); Chloride 110 mmol/L (98-107); Glucose 198 mg/dL (74-106); LDL Cholesterol 45 mg/dL (< 100); Potassium 4.7 mmol/L (3.5-5.1); Sodium 141 mmol/L (136-145); Triglycerides 76 mg/dL (< 150)
[2024-01-03 16:53] LABS: Albumin 3.6 g/dL (3.2-4.8); Bilirubin, Total 1.5 mg/dL (0.2-1.0); Cholesterol 102 mg/dL (< 200); HDL Cholesterol 40 mg/dL (40-59); Total Protein 6.5 g/dL (5.7-8.2)
[2024-01-03 17:40] LABS: Amphetamine Screen, Urine Neg (NEGATIVE); Barbiturate Scree,Urine Neg (NEGATIVE); Benzodiazephine Screen, Urine Neg (NEGATIVE); Cannabinoid Screen, Urine Neg (NEGATIVE); Cocaine Screen, Urine Neg (NEGATIVE); Opiate Scree,Urine Neg (NEGATIVE); Phencyclidine Screen, Urine Neg (NEGATIVE)
== END | disposition home or self-care (01) ==
LOC: LAB 15:51
PROVIDERS: ATTEND Internal Medicine
DX: E11.9 Type 2 diabetes mellitus without complications (principal)
CPT/HCPCS: 36415; 80053; 80061; 80307; 81001; 83036; 85025

== ENCOUNTER → 2024-01-04 | Outpatient (CLI) | payer MEDICAID ==
[2024-01-04 13:41] LABS: Urine Bacteria None Seen /hpf (None Seen)
[2024-01-04 14:04] LABS: Amphetamine Screen, Urine Neg (NEGATIVE); Barbiturate Scree,Urine Neg (NEGATIVE); Benzodiazephine Screen, Urine Neg (NEGATIVE); Cannabinoid Screen, Urine Neg (NEGATIVE); Cocaine Screen, Urine Neg (NEGATIVE); Creatinine, Urine 87.42 mg/dL (30.0-125.0); Opiate Scree,Urine Neg (NEGATIVE); Phencyclidine Screen, Urine Neg (NEGATIVE)
[2024-01-04 14:07] LABS: Urine Blood Negative /uL (Negative); Urine Clarity Clear (Clear); Urine Color Yellow (Yellow); Urine Mucus FEW (None Seen); Urine Protein, UAD Negative (Negative); Urine Specific Gravity 1.038 (1.001-1.035); Urine Urobilinogen Normal (Negative); Urine WBC 3 /hpf (0 - 3); Urine pH 5.5 (5.0-9.0)
== END | disposition home or self-care (01) ==
LOC: LAB 10:54
PROVIDERS: ATTEND Internal Medicine
DX: E72.20 Disorder of urea cycle metabolism, unspecified (principal)
CPT/HCPCS: 36415; 80307; 81001; 82043; 82140; 82570

== ENCOUNTER 2024-01-11 20:51 | Inpatient (IN) | payer MEDICAID ==
[~2024-01-11] VITALS: Ht 182.9 cm; Wt 85.8 kg
[2024-01-11 21:39] LABS: Basophils # (auto) 0.1 10 ^3/uL (0-0.2); Basophils % (auto) 1.2 % (0.0-2.0); Eosinophils # (auto) 0.5 10 ^3/uL (0-0.8); Eosinophils % (auto) 9.6 % (0.0-7.0); Hematocrit 40.3 % (41.0-53.0); Hemoglobin 13.8 g/dL (13.5-17.5); Lymphocytes % (auto) 17.3 % (10.0-50.0); Mean Corpuscular Hgb Conc. 34.4 g/dL (32.0-36.0); Mean Corpuscular Volume 96.1 fL (80.0-100.0); Monocytes # (auto) 0.5 10 ^3/uL (0-1.3); Monocytes % (auto) 8.3 % (0.0-12.0); Neutrophils # (auto) 3.6 10 ^3/uL (1.6-8.6); Neutrophils % (auto) 63.6 % (37.0-80.0); Nucleated Red Blood Cells % 0.1 %; White Blood Cell 5.7 10^3/uL (4.4-10.8)
[2024-01-11 21:45] LABS: Chloride 111 mmol/L (98-107); Potassium 4.2 mmol/L (3.5-5.1); Sodium 140 mmol/L (136-145)
[2024-01-11 21:46] LABS: Anion Gap 8 (5-15); Carbon Dioxide 21 mmol/L (20-30)
[2024-01-11 21:51] LABS: Glucose 130 mg/dL (74-106)
[2024-01-11 21:52] LABS: Blood Urea Nitrogen 7 mg/dL (9-23)
[2024-01-12] VITALS (7 sets, daily range): BP systolic 93–110; BP diastolic 48–63; PULSE 18–109; RESP 12–18; TEMP 97.8–98.4; O2SAT 92–98
[2024-01-12] MEDS ORDERED: ONDANSETRON HCL 4 MG/2 ML VIAL IV PRN (00:15)
[2024-01-12] MEDS ORDERED: HYDROcodone-ACET 5/325MG TAB PO PRN (00:15)
[2024-01-12] MEDS ORDERED: DEXTROSE (50%) 50ML SYRG IV PRN (00:15)
[2024-01-12] MEDS ORDERED: DOCUSATE SOD 100 MG CAP PO PRN (00:15)
[2024-01-12] MEDS: CLINDAMYCIN 300MG IV 50 ML IV ONE (04:14)
[2024-01-12] MEDS: PIPERACILLIN-TAZOB 3.375GM 100 ML IV ONE (04:14)
[2024-01-12] MEDS ORDERED: MORPHINE SULFATE INJ 2 MG/ml SYRG IV PRN (04:30)
[2024-01-12] MEDS ORDERED: NITROGLYCERIN 0.4 MG SL TAB SL PRN (04:30)
[2024-01-12] MEDS ORDERED: SULF400T11 PO (06:08)
[2024-01-12] MEDS ORDERED: INSU100I54 SC (06:08)
[2024-01-12] MEDS ORDERED: LACT10SO60 PO (06:08)
[2024-01-12] MEDS ORDERED: EMPA1TAB3 PO (06:08)
[2024-01-12] MEDS ORDERED: INSU1INJ19 SC (06:08)
[2024-01-12] MEDS ORDERED: RIFA550T PO (06:08)
[2024-01-12] MEDS ORDERED: TAMS0.4C36 PO (06:08)
[2024-01-12] MEDS ORDERED: MUPI2OIN2 TOP (06:26)
[2024-01-12] MEDS: InsuLIN REG 1unit/0.01ml Soln (100units/ml) SC SCH ×2 (07:00→21:28)
[2024-01-12] MEDS: SODIUM CHLOR 0.9% PF (SALINE LOCK) 10ML VIAL/SYR IV SCH (07:07)
[2024-01-12] MEDS: ACCU-CHEK COMFORT CURVE STRIP VI SCH (07:08)
[2024-01-12] MEDS ORDERED: DOXY-286 PO (07:53)
[2024-01-12] MEDS: ASPirin 81 mg TAB PO SCH (09:28)
[2024-01-12] MEDS: FAMOTIDINE (10MG/ML) 2ML VL IV SCH (09:28)
[2024-01-12] MEDS: PIPERACILLIN-TAZOB 3.375GM 100 ML IV SCH (14:20)
[2024-01-12] MEDS: ACETAMINOPHEN 325 MG TAB PO PRN (18:47)
[2024-01-12] MEDS: LACTULOSE 20Gm/30ML SOLN PO ONE (21:33)
[2024-01-13] VITALS (8 sets, daily range): BP systolic 95–122; BP diastolic 56–74; PULSE 63–109; RESP 16–18; TEMP 97.6–98.4; O2SAT 91–96
[2024-01-13] MEDS: DOXYCYCLINE 100 MG TAB/CAP PO SCH (00:51)
[2024-01-13] MEDS: SULFAMETHOX W/TRIMETH(800/160MG) DS TAB PO SCH (00:51)
[2024-01-13 06:42] LABS: Hematocrit 35.7 % (41.0-53.0); Hemoglobin 12.3 g/dL (13.5-17.5); Mean Corpuscular Hemoglobin 33.6 pg (28.0-32.0); Mean Corpuscular Hgb Conc. 34.5 g/dL (32.0-36.0); Mean Corpuscular Volume 97.3 fL (80.0-100.0); Red Blood Cells 3.67 10^6/uL (4.5-5.90); Red Cell Distribution Width 16.1 % (11.8-14.3); White Blood Cell 3.1 10^3/uL (4.4-10.8)
[2024-01-13 06:57] LABS: Alanine Aminotransferase 29 U/L (7-40); Alkaline Phosphatase 144 U/L (46-116); Anion Gap 5 (5-15); BUN/Creatinine Ratio 9.5 (10.0-20.0); Blood Urea Nitrogen 8 mg/dL (9-23); Calcium 8.8 mg/dL (8.5-10.1); Carbon Dioxide 24 mmol/L (20-30); Chloride 113 mmol/L (98-107); Glucose 159 mg/dL (74-106); Sodium 142 mmol/L (136-145)
[2024-01-13 06:58] LABS: Albumin 2.8 g/dL (3.2-4.8); Aspartate Aminotransferase 32 U/L (13-40); Bilirubin, Total 1.2 mg/dL (0.2-1.0); Total Protein 4.9 g/dL (5.7-8.2)
[2024-01-13 07:14] LABS: Basophils % (manual) 0 (0.0-2.0); Blast Cells 0; Metamyelocytes % 0; Myelocytes % 0; Promyelocytes % 0; Reactive Lymphocytes 0
[2024-01-13 08:43] LABS: Band Neutrophils % (manual) 1; Eosinophils % (manual) 20 (0-7); Lymphocytes % (manual) 44 (10.0-50.0); Monocytes % (manual) 2 (0-12); Platelet Estimate Decreased
[2024-01-13] MEDS: LACTULOSE 20Gm/30ML SOLN PO SCH (11:16)
[2024-01-13] MEDS: MORPHINE SULFATE INJ 2 MG/ml SYRG IV PRN (21:07)
[2024-01-14 05:00] VITALS: BP 111/53; PULSE 64; RESP 16; TEMP 97.7; O2SAT 96
[2024-01-14 06:37] LABS: Alanine Aminotransferase 29 U/L (7-40); Alkaline Phosphatase 137 U/L (46-116); Anion Gap 4 (5-15); Calcium 8.9 mg/dL (8.5-10.1); Carbon Dioxide 24 mmol/L (20-30); Chloride 113 mmol/L (98-107); Potassium 4.1 mmol/L (3.5-5.1); Sodium 141 mmol/L (136-145)
[2024-01-14 06:38] LABS: BUN/Creatinine Ratio 11.7 (10.0-20.0); Blood Urea Nitrogen 9 mg/dL (9-23); Glucose 133 mg/dL (74-106)
[2024-01-14 06:39] LABS: Albumin 2.8 g/dL (3.2-4.8); Aspartate Aminotransferase 35 U/L (13-40)
[2024-01-14 06:40] LABS: Bilirubin, Total 1.2 mg/dL (0.2-1.0)
[2024-01-14 06:46] LABS: Hematocrit 36.9 % (41.0-53.0); Hemoglobin 12.8 g/dL (13.5-17.5); Mean Corpuscular Hemoglobin 33.2 pg (28.0-32.0); Mean Corpuscular Hgb Conc. 34.6 g/dL (32.0-36.0); Red Blood Cells 3.85 10^6/uL (4.5-5.90); White Blood Cell 3.8 10^3/uL (4.4-10.8)
[2024-01-14 07:07] LABS: Basophils % (manual) 0 (0.0-2.0); Blast Cells 0; Metamyelocytes % 0; Myelocytes % 0; Promyelocytes % 0; Reactive Lymphocytes 0
[2024-01-14 08:00] VITALS: PULSE 89; RESP 18; O2SAT 92
[2024-01-14 08:55] LABS: Band Neutrophils % (manual) 2; Lymphocytes % (manual) 26 (10.0-50.0); Monocytes % (manual) 6 (0-12)
[2024-01-14 08:56] LABS: Eosinophils % (manual) 22 (0-7); Platelet Estimate Decreased; RBC Morphology Normal
[2024-01-14 17:25] VITALS: BP 114/64; PULSE 66; RESP 19; TEMP 98.1; O2SAT 95
[2024-01-14] MEDS: LACTULOSE 20Gm/30ML SOLN PO SCH (17:30)
[2024-01-14 20:00] VITALS: PULSE 109; RESP 18; O2SAT 92
[2024-01-14 21:00] VITALS: BP 124/69; PULSE 68; RESP 18; TEMP 98.6; O2SAT 95
[2024-01-15 05:00] VITALS: BP 111/79; PULSE 71; RESP 18; TEMP 98.5; O2SAT 96
[2024-01-15 08:01] VITALS: PULSE 109; RESP 18; O2SAT 92
[2024-01-15 13:23] VITALS: BP 128/66; PULSE 72; RESP 18; TEMP 98; O2SAT 95
[2024-01-15 16:28] VITALS: BP 121/65; PULSE 74; RESP 20; TEMP 98.1; O2SAT 95
[2024-01-15] MEDS ORDERED: AUG875T PO (17:15)
[2024-01-15 19:50] VITALS: BP 142/65; PULSE 72; RESP 20; TEMP 98.6; O2SAT 98
[2024-01-15 20:00] VITALS: PULSE 109; RESP 18; O2SAT 92
[2024-01-16] MEDS ORDERED: FAMOTIDINE 20 MG TAB PO SCH (10:00)
== END 2024-01-15 20:50 | disposition home or self-care (01) | DRG 383 ==
LOC: ER 20:51 → OVERFLOW 01-12 04:23 → EAST 01-12 06:15
PROVIDERS: ADMIT Internal Medicine; ATTEND Pediatrics Pediatric Pulmonology
DX: L03.115 Cellulitis of right lower limb (principal); E11.40 Type 2 diabetes mellitus with diabetic neuropathy, unspecified; D69.59 Other secondary thrombocytopenia; I87.2 Venous insufficiency (chronic) (peripheral); D64.9 Anemia, unspecified; E11.65 Type 2 diabetes mellitus with hyperglycemia; K70.30 Alcoholic cirrhosis of liver without ascites; E78.5 Hyperlipidemia, unspecified; K80.20 Calculus of gallbladder without cholecystitis without obstruction; I10 Essential (primary) hypertension; I87.8 Other specified disorders of veins; Z87.442 Personal history of urinary calculi; Z79.4 Long term (current) use of insulin; Z79.899 Other long term (current) drug therapy; Z91.148 Patient's other noncompliance with medication regimen for other reason; Z86.14 Personal history of Methicillin resistant Staphylococcus aureus infection; L03.116 Cellulitis of left lower limb
CPT/HCPCS: 36415; 76705; 80048; 80053; 82140; 82962; 85007; 85025; 85027; 87081; 93970; 96365; 96368; 97110; 97116; 97163; 97530; G0378; J1815; J2543; J3490